=== PATIENT | male | born 1965 | race African-American/Black ===

== ENCOUNTER 2020-11-05 21:54 | Inpatient (IN) | payer OTHER ==
[2020-11-05 23:33] VITALS: BMI 32.6
[2020-11-06] MEDS ORDERED: METHOCARBAMOL 500 MG TABLET PO PRN (02:06)
[2020-11-06] MEDS ORDERED: BISMUTH SUBSALICYLATE 524 MG/30 ML PO PRN ×2 (02:06→02:10)
[2020-11-06] MEDS ORDERED: NICOTINE 10 MG CARTRIDGE (INHALER) IH PRN (02:06)
[2020-11-06] MEDS ORDERED: ONDANSETRON *ODT* 4 MG TABLET SL PRN (02:06)
[2020-11-06] MEDS ORDERED: MAGNESIUM HYDROX 2400MG/30ML ORAL SUSPENSION 30 ML CUP PO PRN (02:06)
[2020-11-06] MEDS ORDERED: MAG HYDROX/AL HYDROX/SIMETH 30 ML UNIT-DOSE CUP PO PRN (02:06)
[2020-11-06] MEDS ORDERED: IBUPROFEN 400 MG TABLET (FP) PO PRN (02:06)
[2020-11-06] MEDS ORDERED: ACETAMINOPHEN 325 MG TABLET (FP) PO PRN ×3 (02:06→02:10)
[2020-11-06] MEDS ORDERED: MENTHOL/PHENOL 1 EACH UD MM PRN (02:06)
[2020-11-06] MEDS ORDERED: MAGNESIUM CITRATE 300 ML BOTTLE PO PRN (02:06)
[2020-11-06] MEDS ORDERED: cloNIDine HCL 0.1 MG TABLET PO PRN (02:16)
[2020-11-06] MEDS ORDERED: methaDONE HCL 10 MG TABLET (FOR DETOX USE ONLY) PO ONE (02:16)
[2020-11-06] MEDS ORDERED: diazePAM 5 MG TABLET PO PRN (02:16)
[2020-11-06] MEDS ORDERED: methaDONE HCL 10 MG TABLET (FOR DETOX USE ONLY) ONE (04:13)
[2020-11-06] MEDS ORDERED: diazePAM 5 MG TABLET ONE ×2 (05:31→12:11)
[2020-11-06] MEDS: diazePAM 5 MG TABLET PO SCH ×4 (05:39→22:42)
[2020-11-06] MEDS: hydrOXYzine PAMOATE 25 MG CAPSULE (FP) PO SCH ×4 (06:18→18:01)
[2020-11-06] MEDS ORDERED: metFORMIN HCL 500 MG TABLET (FP) PO ONE (09:06)
[2020-11-06] MEDS ORDERED: hydrOXYzine PAMOATE 25 MG CAPSULE (FP) PO ONE (12:10)
[2020-11-06] MEDS: PRENATAL VITAMINS W/ FOLIC ACID TABLET (FP) PO SCH (12:13)
[2020-11-06] MEDS: metFORMIN HCL 500 MG TABLET (FP) PO SCH (18:01)
[2020-11-06] MEDS ORDERED: hydrOXYzine PAMOATE 25 MG CAPSULE (FP) PO PRN (18:48)
[2020-11-06] MEDS: THIAMINE HCL 100 MG TABLET (FP) PO SCH ×2 (22:41)
[2020-11-06] MEDS: MELATONIN 5 MG TABLETS PO SCH (22:46)
[2020-11-07] MEDS: metFORMIN HCL 500 MG TABLET (FP) PO SCH ×2 (07:09→17:49)
[2020-11-07] MEDS: diazePAM 5 MG TABLET PO SCH ×3 (07:09→22:50)
[2020-11-07] MEDS ORDERED: methaDONE HCL 10 MG TABLET (FOR DETOX USE ONLY) ONE (09:35)
[2020-11-07] MEDS: PRENATAL VITAMINS W/ FOLIC ACID TABLET (FP) PO SCH (11:08)
[2020-11-07] MEDS: THIAMINE HCL 100 MG TABLET (FP) PO SCH ×2 (22:50→22:56)
[2020-11-07] MEDS: MELATONIN 5 MG TABLETS PO SCH (22:51)
[2020-11-08] MEDS: diazePAM 5 MG TABLET PO SCH ×2 (06:59→19:10)
[2020-11-08] MEDS: metFORMIN HCL 500 MG TABLET (FP) PO SCH ×2 (07:01→19:09)
[2020-11-08] MEDS ORDERED: methaDONE HCL 10 MG TABLET (FOR DETOX USE ONLY) PO ONE (10:00)
[2020-11-08] MEDS: PRENATAL VITAMINS W/ FOLIC ACID TABLET (FP) PO SCH (10:33)
[2020-11-08] MEDS: THIAMINE HCL 100 MG TABLET (FP) PO SCH ×2 (23:48→23:49)
[2020-11-08] MEDS: MELATONIN 5 MG TABLETS PO SCH ×2 (23:48→23:53)
[2020-11-09] MEDS ORDERED: diazePAM 5 MG TABLET PO ONE (06:00)
[2020-11-09] MEDS: metFORMIN HCL 500 MG TABLET (FP) PO SCH ×2 (06:30→18:29)
[2020-11-09] MEDS ORDERED: methaDONE HCL 10 MG TABLET (FOR DETOX USE ONLY) ONE (09:25)
[2020-11-09] MEDS: PRENATAL VITAMINS W/ FOLIC ACID TABLET (FP) PO SCH (11:49)
[2020-11-09 13:13] LABS: HEMATOCRIT 36.5 % (35.4-49); HEMOGLOBIN 12.4 GM/dL (11.7-16.9); MEAN CELL VOLUME 91.2 fl (80-96); MEAN PLT VOLUME 8.2 fl (7.5-11.1); PLATELET COUNT 289 10^3/uL (134-434); RDW 14.2 % (11.9-15.9); WHITE BLOOD COUNT 3.8 K/mm3 (4.0-10.0)
[2020-11-09 13:17] LABS: ALBUMIN 3.6 g/dl (3.4-5.0); CALCIUM 9.2 mg/dL (8.5-10.1)
[2020-11-09 13:19] LABS: BLOOD UREA NITROGEN 11.6 mg/dL (7-18)
[2020-11-09 13:21] LABS: BILIRUBIN,TOTAL 0.4 mg/dL (0.2-1); TOT PROT 7.1 g/dl (6.4-8.2)
[2020-11-09 13:22] LABS: CREATININE 0.8 mg/dL (0.55-1.3)
[2020-11-09] MEDS: THIAMINE HCL 100 MG TABLET (FP) PO SCH ×2 (22:28)
[2020-11-09] MEDS: MELATONIN 5 MG TABLETS PO SCH (22:28)
[2020-11-10] MEDS: metFORMIN HCL 500 MG TABLET (FP) PO SCH ×2 (06:44→18:53)
[2020-11-10] MEDS ORDERED: methaDONE HCL 10 MG TABLET (FOR DETOX USE ONLY) PO ONE (10:00)
[2020-11-10] MEDS: PRENATAL VITAMINS W/ FOLIC ACID TABLET (FP) PO SCH (10:09)
[2020-11-10] MEDS: MELATONIN 5 MG TABLETS PO SCH (22:02)
[2020-11-10] MEDS: THIAMINE HCL 100 MG TABLET (FP) PO SCH ×2 (22:02)
[2020-11-11] MEDS: metFORMIN HCL 500 MG TABLET (FP) PO SCH (06:53)
[2020-11-11 07:13] VITALS: BP 135/74; PULSE 75; TEMP 98.6
== END 2020-11-11 10:10 | disposition home or self-care (01) | DRG 773 ==
LOC: YASAS 21:54 → Y6N 11-06 14:28
PROVIDERS: ADMIT Allergy & Immunology; ATTEND Allergy & Immunology
PROC: HZ2ZZZZ Detoxification Services for Substance Abuse Treatment (ICD-10-PCS; principal; 2020-11-06)
DX: F11.23 Opioid dependence with withdrawal (principal); F10.230 Alcohol dependence with withdrawal, uncomplicated; F14.20 Cocaine dependence, uncomplicated; F17.210 Nicotine dependence, cigarettes, uncomplicated; I10 Essential (primary) hypertension; E11.9 Type 2 diabetes mellitus without complications; Z79.84 Long term (current) use of oral hypoglycemic drugs; A53.9 Syphilis, unspecified
CPT/HCPCS: 36415; 80053; 82962; 85027; 86593; 86780; 93005; 93010; C9803; U0003; U0005

== ENCOUNTER 2021-06-03 14:31 | Inpatient (IN) | payer OTHER ==
[2021-06-03] MEDS ORDERED: BENZOCAINE/MENTHOL (CHLORASEPTIC ) LOZENGE MM PRN (16:27)
[2021-06-03] MEDS ORDERED: NICOTINE 10 MG CARTRIDGE (INHALER) IH PRN (16:27)
[2021-06-03] MEDS ORDERED: MAG HYDROX/AL HYDROX/SIMETH 30 ML UNIT-DOSE CUP PO PRN (16:27)
[2021-06-03] MEDS ORDERED: LOPERAMIDE HCL 2 MG CAPSULE PO PRN (16:27)
[2021-06-03] MEDS ORDERED: IBUPROFEN 400 MG TABLET (FP) PO PRN (16:27)
[2021-06-03] MEDS ORDERED: DICYCLOMINE HCL 10 MG CAPSULE PO PRN (16:27)
[2021-06-03] MEDS ORDERED: ONDANSETRON *ODT* 4 MG TABLET SL PRN (16:27)
[2021-06-03] MEDS ORDERED: ACETAMINOPHEN 325 MG TABLET (FP) PO PRN ×2 (16:27)
[2021-06-03] MEDS ORDERED: MAGNESIUM HYDROX 2400MG/30ML ORAL SUSPENSION 30 ML CUP PO PRN (16:27)
[2021-06-03] MEDS ORDERED: MAGNESIUM CITRATE 300 ML BOTTLE PO PRN (16:27)
[2021-06-03] MEDS ORDERED: NALOXONE HCL 0.4 MG/ML VIAL IM PRN (16:27)
[2021-06-03 17:24] VITALS: BMI 32.1
[2021-06-03] MEDS ORDERED: INSULIN SLIDING SCALE (NOVOLOG) 1 VIAL SQ SCH (18:00)
[2021-06-03] MEDS: hydrOXYzine PAMOATE 25 MG CAPSULE (FP) PO SCH ×2 (19:21→23:13)
[2021-06-03] MEDS: THIAMINE HCL 100 MG TABLET (FP) PO SCH (23:13)
[2021-06-03] MEDS: MELATONIN 5 MG TABLETS PO SCH (23:13)
[2021-06-04] MEDS: hydrOXYzine PAMOATE 25 MG CAPSULE (FP) PO PRN ×2 (06:31→10:39)
[2021-06-04] MEDS: metFORMIN HCL 500 MG TABLET (FP) PO SCH ×2 (06:31→20:14)
[2021-06-04] MEDS: INSULIN SLIDING SCALE (NOVOLOG) 1 VIAL SQ SCH ×2 (06:34→20:14)
[2021-06-04] MEDS: PRENATAL VITAMINS W/ FOLIC ACID TABLET (FP) PO SCH ×2 (10:35→10:39)
[2021-06-04] MEDS: METHOCARBAMOL 500 MG TABLET PO PRN (10:39)
[2021-06-04 13:18] LABS: CALCIUM 8.6 mg/dL (8.5-10.1)
[2021-06-04 13:19] LABS: ALBUMIN 3.2 g/dl (3.4-5.0); BLOOD UREA NITROGEN 17.7 mg/dL (7-18)
[2021-06-04 13:22] LABS: CREATININE 0.8 mg/dL (0.55-1.3)
[2021-06-04 13:24] LABS: BILIRUBIN,TOTAL 0.2 mg/dL (0.2-1); TOT PROT 6.1 g/dl (6.4-8.2)
[2021-06-04 13:31] LABS: HEMATOCRIT 35.5 % (35.4-49); HEMOGLOBIN 11.6 GM/dL (11.7-16.9); MCH 31.4 pg (25.7-33.7); MCHC 32.7 g/dl (32.0-35.9); MEAN PLT VOLUME 8.1 fl (7.5-11.1); PLATELET COUNT 245 10^3/uL (134-434); RDW 13.8 % (11.9-15.9); WHITE BLOOD COUNT 4.5 K/mm3 (4.0-10.0)
[2021-06-04] MEDS ORDERED: LORazepam 1 MG TABLET PO PRN (15:08)
[2021-06-04] MEDS ORDERED: LORazepam 1 MG TABLET PO ONE (15:10)
[2021-06-04] MEDS ORDERED: methaDONE HCL 10 MG TABLET (FOR DETOX USE ONLY) ONE (15:44)
[2021-06-04] MEDS: LORazepam 1 MG TABLET PO SCH ×2 (20:15→22:41)
[2021-06-04] MEDS: THIAMINE HCL 100 MG TABLET (FP) PO SCH (22:41)
[2021-06-04] MEDS: MELATONIN 5 MG TABLETS PO SCH (22:41)
[2021-06-05] MEDS: LORazepam 0.5 MG TABLET PO SCH ×4 (05:30→23:01)
[2021-06-05] MEDS: METHOCARBAMOL 500 MG TABLET PO PRN (05:32)
[2021-06-05] MEDS: INSULIN SLIDING SCALE (NOVOLOG) 1 VIAL SQ SCH ×2 (07:21→17:07)
[2021-06-05] MEDS: metFORMIN HCL 500 MG TABLET (FP) PO SCH ×2 (07:21→19:29)
[2021-06-05] MEDS ORDERED: methaDONE HCL 10 MG TABLET (FOR DETOX USE ONLY) PO ONE (10:00)
[2021-06-05] MEDS: PRENATAL VITAMINS W/ FOLIC ACID TABLET (FP) PO SCH (10:24)
[2021-06-05 16:07] LABS: SARS-CoV-2 NAA Not Detected (Not Detected)
[2021-06-05] MEDS: THIAMINE HCL 100 MG TABLET (FP) PO SCH (23:01)
[2021-06-05] MEDS: MELATONIN 5 MG TABLETS PO SCH (23:01)
[2021-06-06] MEDS ORDERED: LORazepam 0.5 MG TABLET PO PRN
[2021-06-06] MEDS ORDERED: LORazepam 0.5 MG TABLET PO ONE (05:00)
[2021-06-06] MEDS: metFORMIN HCL 500 MG TABLET (FP) PO SCH ×2 (06:13→18:21)
[2021-06-06] MEDS: INSULIN SLIDING SCALE (NOVOLOG) 1 VIAL SQ SCH ×2 (07:16→17:04)
[2021-06-06] MEDS ORDERED: methaDONE HCL 10 MG TABLET (FOR DETOX USE ONLY) ONE (09:41)
[2021-06-06] MEDS: METHOCARBAMOL 500 MG TABLET PO PRN (12:56)
[2021-06-06] MEDS: PRENATAL VITAMINS W/ FOLIC ACID TABLET (FP) PO SCH (12:58)
[2021-06-06] MEDS: BISMUTH SUBSALICYLATE 524 MG/30 ML PO PRN ×2 (12:59→22:28)
[2021-06-06] MEDS: MELATONIN 5 MG TABLETS PO SCH (22:27)
[2021-06-06] MEDS: THIAMINE HCL 100 MG TABLET (FP) PO SCH (22:27)
[2021-06-07] MEDS ORDERED: LORazepam 0.5 MG TABLET PO PRN
[2021-06-07] MEDS ORDERED: LORazepam 0.5 MG TABLET PO ONE (06:00)
[2021-06-07] MEDS: metFORMIN HCL 500 MG TABLET (FP) PO SCH (07:11)
[2021-06-07] MEDS: INSULIN SLIDING SCALE (NOVOLOG) 1 VIAL SQ SCH (07:12)
[2021-06-07] MEDS ORDERED: TRIMETHOBENZAMIDE HCL 200MG/2ML INJ IM PRN (09:03)
[2021-06-07 09:05] VITALS: BP 164/83; PULSE 84; TEMP 97.6
[2021-06-07] MEDS ORDERED: methaDONE HCL 10 MG TABLET (FOR DETOX USE ONLY) PO ONE (10:00)
== END 2021-06-07 10:13 | disposition home or self-care (01) | DRG 773 ==
LOC: YASAS 14:31 → UNDOADMIN 16:52 → Y3N 16:52
PROVIDERS: ADMIT Allergy & Immunology; ATTEND Allergy & Immunology
PROC: HZ2ZZZZ Detoxification Services for Substance Abuse Treatment (ICD-10-PCS; principal; 2021-06-03)
DX: F11.23 Opioid dependence with withdrawal (principal); F10.230 Alcohol dependence with withdrawal, uncomplicated; F17.210 Nicotine dependence, cigarettes, uncomplicated; I10 Essential (primary) hypertension; E11.65 Type 2 diabetes mellitus with hyperglycemia; Z79.84 Long term (current) use of oral hypoglycemic drugs; Z86.19 Personal history of other infectious and parasitic diseases
CPT/HCPCS: 36415; 80053; 82962; 85027; 86593; 86780; 93005; 93010; C9803-CS; Q0162; U0003; U0005

== ENCOUNTER 2021-10-25 17:04 | Observation (INO) | payer OTHER ==
[2021-10-25 17:37] VITALS: BMI 33.5
[2021-10-25] MEDS ORDERED: ASPIRIN 81 MG CHEWABLE TABLETS PO ONE (17:59)
[2021-10-25] MEDS ORDERED: ASPIRIN 81 MG CHEWABLE TABLETS ONE (18:31)
[2021-10-25 18:36] LABS: BASO % 1.1 % (0-2.0); EOS % 1.4 % (0-4.5); HEMATOCRIT 34.6 % (35.4-49); HEMOGLOBIN 11.4 GM/dL (11.7-16.9); LYMPH % 33.2 % (8-40); MCH 31.8 pg (25.7-33.7); MEAN CELL VOLUME 96.6 fl (80-96); MEAN PLT VOLUME 7.3 fl (7.5-11.1); MONO % 10.8 % (3.8-10.2); NEUT % 53.5 % (42.8-82.8); PLATELET COUNT 256 10^3/uL (134-434); RBC 3.58 M/mm3 (4.00-5.60); RDW 13.8 % (11.9-15.9); WHITE BLOOD COUNT 5.2 K/mm3 (4.0-10.0)
[2021-10-25 18:57] LABS: BLOOD UREA NITROGEN 18.5 mg/dL (7-18); CALCIUM 9.3 mg/dL (8.5-10.1)
[2021-10-25 18:59] LABS: ALBUMIN 4.2 g/dl (3.4-5.0)
[2021-10-25 19:00] LABS: CREATININE 0.9 mg/dL (0.55-1.3)
[2021-10-25 19:02] LABS: BILIRUBIN,TOTAL 0.2 mg/dL (0.2-1); TOT PROT 7.5 g/dl (6.4-8.2)
[2021-10-25 20:38] LABS: METHADONE, UR NEGATIVE (NEGATIVE); PHENCYCLIDINE,URINE NEGATIVE (NEGATIVE); URINE BENZODIAZEPINES NEGATIVE (NEGATIVE)
[2021-10-25 20:39] LABS: COCAINE, UR POSITIVE (NEGATIVE); OPIATES, URI POSITIVE (NEGATIVE); URINE AMPHETAMINES NEGATIVE (NEGATIVE); URINE BARBITURATES NEGATIVE (NEGATIVE)
[2021-10-25] MEDS ORDERED: LORazepam 1 MG TABLET PO PRN (23:14)
[2021-10-25] MEDS: LORazepam 2 MG TABLET PO SCH (23:41)
[2021-10-26] MEDS ORDERED: LORazepam 1 MG TABLET ONE ×4 (05:33→23:19)
[2021-10-26] MEDS: LORazepam 1 MG TABLET PO SCH ×6 (05:35→23:18)
[2021-10-26] MEDS: LORazepam 2 MG TABLET PO SCH ×2 (05:39→22:44)
[2021-10-26 08:37] LABS: BASO % 0.8 % (0-2.0); EOS % 1.5 % (0-4.5); HEMOGLOBIN 11.8 GM/dL (11.7-16.9); LYMPH % 33.2 % (8-40); MCH 32.2 pg (25.7-33.7); MCHC 33.7 g/dl (32.0-35.9); MEAN CELL VOLUME 95.5 fl (80-96); MEAN PLT VOLUME 7.1 fl (7.5-11.1); MONO % 12.7 % (3.8-10.2); NEUT % 51.8 % (42.8-82.8); PLATELET COUNT 252 10^3/uL (134-434); RBC 3.67 M/mm3 (4.00-5.60); RDW 13.5 % (11.9-15.9); WHITE BLOOD COUNT 4.1 K/mm3 (4.0-10.0)
[2021-10-26] MEDS: INSULIN SLIDING SCALE (NOVOLOG) 1 VIAL SQ SCH ×4 (08:47→23:18)
[2021-10-26 09:05] LABS: MAGNESIUM 1.9 mg/dL (1.8-2.4)
[2021-10-26 09:09] LABS: PHOSPHOROUS 3.2 mg/dL (2.5-4.9)
[2021-10-26] MEDS ORDERED: NICOTINE 7 MG/24 HOURS TOPICAL PATCH TD SCH (10:00)
[2021-10-26] MEDS ORDERED: NICOTINE 7 MG/24 HOURS TOPICAL PATCH TD ONE (10:31)
[2021-10-26] MEDS ORDERED: FOLIC ACID 1 MG TABLET (FP) ONE (10:31)
[2021-10-26] MEDS ORDERED: ENOXAPARIN NA (PORCINE) 40 MG/0.4 ML DISP.SYRIN SQ ONE (10:31)
[2021-10-26] MEDS: FOLIC ACID 1 MG TABLET (FP) PO SCH (10:36)
[2021-10-26] MEDS: ENOXAPARIN NA (PORCINE) 40 MG/0.4 ML DISP.SYRIN SQ SCH (10:36)
[2021-10-26] MEDS ORDERED: THIAMINE HCL 100 MG TABLET (FP) PO SCH (22:00)
[2021-10-26] MEDS ORDERED: THIAMINE HCL 100 MG TABLET (FP) ONE (23:19)
[2021-10-27] MEDS ORDERED: LORazepam 0.5 MG TABLET PO PRN
[2021-10-27 02:32] VITALS: TEMP 97.4
[2021-10-27] MEDS ORDERED: LORazepam 0.5 MG TABLET ONE ×2 (05:40→10:36)
[2021-10-27] MEDS: LORazepam 0.5 MG TABLET PO SCH ×2 (05:50→10:42)
[2021-10-27] MEDS: INSULIN SLIDING SCALE (NOVOLOG) 1 VIAL SQ SCH (06:01)
[2021-10-27] MEDS ORDERED: FOLIC ACID 1 MG TABLET (FP) ONE (10:37)
[2021-10-27] MEDS ORDERED: ENOXAPARIN NA (PORCINE) 40 MG/0.4 ML DISP.SYRIN SQ ONE (10:37)
[2021-10-27] MEDS: ENOXAPARIN NA (PORCINE) 40 MG/0.4 ML DISP.SYRIN SQ SCH (10:42)
[2021-10-27] MEDS: FOLIC ACID 1 MG TABLET (FP) PO SCH (10:42)
[2021-10-27 10:59] LABS: BASO % 0.9 % (0-2.0); EOS % 0.6 % (0-4.5); HEMATOCRIT 39.6 % (35.4-49); LYMPH % 25.9 % (8-40); MCH 31.3 pg (25.7-33.7); MCHC 32.8 g/dl (32.0-35.9); MEAN CELL VOLUME 95.4 fl (80-96); MEAN PLT VOLUME 7.9 fl (7.5-11.1); MONO % 9.3 % (3.8-10.2); NEUT % 63.3 % (42.8-82.8); PLATELET COUNT 296 10^3/uL (134-434); RBC 4.15 M/mm3 (4.00-5.60); RDW 13.4 % (11.9-15.9); WHITE BLOOD COUNT 4.2 K/mm3 (4.0-10.0)
[2021-10-27 11:20] LABS: BLOOD UREA NITROGEN 16.9 mg/dL (7-18); CALCIUM 9.5 mg/dL (8.5-10.1)
[2021-10-27 11:24] LABS: CREATININE 0.8 mg/dL (0.55-1.3)
[2021-10-27 11:25] LABS: BILIRUBIN,TOTAL 0.4 mg/dL (0.2-1); TOT PROT 7.1 g/dl (6.4-8.2)
[2021-10-27 13:24] VITALS: BP 124/54; PULSE 87; RESP 18
[2021-10-28] MEDS ORDERED: LORazepam 0.5 MG TABLET PO ONE (05:00)
== END 2021-10-27 13:11 ==
LOC: JER 17:04 → UNDOADMOB 19:18 → JERBED 19:18 → INTOOBSV 23:09 → OBSVTOIN 23:09 → JERBED 10-26 16:20
PROVIDERS: ADMIT Internal Medicine; ATTEND Nurse Practitioner Family
DX: F19.10 Other psychoactive substance abuse, uncomplicated (principal); E11.9 Type 2 diabetes mellitus without complications; I10 Essential (primary) hypertension; A53.9 Syphilis, unspecified; K21.9 Gastro-esophageal reflux disease without esophagitis; Z29.8 Encounter for other specified prophylactic measures; F17.210 Nicotine dependence, cigarettes, uncomplicated; E66.8 Other obesity; Z68.33 Body mass index [BMI] 33.0-33.9, adult
CPT/HCPCS: 36415; 71045-TC-FY; 80053; 80061; 80307; 82962; 83735; 84100; 84443; 84484; 85025; 93005; 93010; 93306-TC; 99285-25; G0378

== ENCOUNTER 2021-10-27 15:10 | Inpatient (IN) | payer OTHER ==
[2021-10-27 16:40] VITALS: RESP 18; BMI 34.0
[2021-10-27] MEDS ORDERED: METHOCARBAMOL 500 MG TABLET PO PRN (17:04)
[2021-10-27] MEDS ORDERED: chlordiazePOXIDE HCL 25 MG CAPSULE PO PRN (17:04)
[2021-10-27] MEDS ORDERED: IBUPROFEN 400 MG TABLET (FP) PO PRN (17:04)
[2021-10-27] MEDS ORDERED: MAGNESIUM HYDROX 2400MG/30ML ORAL SUSPENSION 30 ML CUP PO PRN (17:04)
[2021-10-27] MEDS ORDERED: cloNIDine HCL 0.1 MG TABLET PO PRN (17:04)
[2021-10-27] MEDS ORDERED: NICOTINE 10 MG CARTRIDGE (INHALER) IH PRN (17:04)
[2021-10-27] MEDS ORDERED: MAG HYDROX/AL HYDROX/SIMETH 30 ML UNIT-DOSE CUP PO PRN (17:04)
[2021-10-27] MEDS ORDERED: MAGNESIUM CITRATE 300 ML BOTTLE PO PRN (17:04)
[2021-10-27] MEDS ORDERED: methaDONE HCL 10 MG TABLET (FOR DETOX USE ONLY) PO ONE (17:04)
[2021-10-27] MEDS ORDERED: BISMUTH SUBSALICYLATE 524 MG/30 ML PO PRN (17:04)
[2021-10-27] MEDS ORDERED: DICYCLOMINE HCL 10 MG CAPSULE PO PRN (17:04)
[2021-10-27] MEDS ORDERED: ACETAMINOPHEN 325 MG TABLET (FP) PO PRN ×2 (17:04)
[2021-10-27] MEDS ORDERED: LOPERAMIDE HCL 2 MG CAPSULE PO PRN (17:04)
[2021-10-27] MEDS ORDERED: BENZOCAINE/MENTHOL (CHLORASEPTIC ) LOZENGE MM PRN (17:04)
[2021-10-27] MEDS ORDERED: IBUPROFEN 600 MG TABLET (FP) PO PRN (17:04)
[2021-10-27] MEDS: chlordiazePOXIDE HCL 25 MG CAPSULE PO SCH ×2 (18:59→22:57)
[2021-10-27] MEDS: hydrOXYzine PAMOATE 25 MG CAPSULE (FP) PO SCH ×2 (19:01→22:57)
[2021-10-27] MEDS ORDERED: THIAMINE HCL 100 MG TABLET (FP) PO SCH (22:00)
[2021-10-27] MEDS: FOLIC ACID 1 MG TABLET (FP) PO SCH (22:53)
[2021-10-27] MEDS: THIAMINE HCL 100 MG TABLET (FP) PO SCH (22:56)
[2021-10-27] MEDS: MELATONIN 5 MG TABLETS PO SCH (22:56)
[2021-10-28] MEDS: chlordiazePOXIDE HCL 25 MG CAPSULE PO SCH ×4 (06:52→22:53)
[2021-10-28] MEDS: hydrOXYzine PAMOATE 25 MG CAPSULE (FP) PO SCH ×5 (06:52→22:53)
[2021-10-28] MEDS: metFORMIN HCL 500 MG TABLET (FP) PO SCH ×2 (07:48→17:38)
[2021-10-28] MEDS: ONDANSETRON *ODT* 4 MG TABLET SL PRN (10:26)
[2021-10-28] MEDS: FOLIC ACID 1 MG TABLET (FP) PO SCH (10:27)
[2021-10-28] MEDS: PRENATAL VITAMINS W/ FOLIC ACID TABLET (FP) PO SCH (10:27)
[2021-10-28] MEDS: INSULIN (NOVOLOG) ASPART 100 UNITS/ML 10ML VIAL SQ SCH ×3 (11:58→22:53)
[2021-10-28] MEDS: INSULIN SLIDING SCALE (NOVOLOG) 1 VIAL SQ SCH (15:17)
[2021-10-28] MEDS ORDERED: INSULIN SLIDING SCALE (NOVOLOG) 1 VIAL SQ ONE (21:32)
[2021-10-28] MEDS: THIAMINE HCL 100 MG TABLET (FP) PO SCH (22:53)
[2021-10-28] MEDS: MELATONIN 5 MG TABLETS PO SCH (22:54)
[2021-10-29] MEDS: chlordiazePOXIDE HCL 25 MG CAPSULE PO SCH ×4 (06:09→22:06)
[2021-10-29] MEDS: metFORMIN HCL 500 MG TABLET (FP) PO SCH ×2 (06:09→18:17)
[2021-10-29] MEDS: hydrOXYzine PAMOATE 25 MG CAPSULE (FP) PO SCH ×5 (06:10→22:05)
[2021-10-29] MEDS: INSULIN (NOVOLOG) ASPART 100 UNITS/ML 10ML VIAL SQ SCH ×4 (08:28→22:07)
[2021-10-29] MEDS ORDERED: methaDONE HCL 10 MG TABLET (FOR DETOX USE ONLY) PO ONE (10:00)
[2021-10-29] MEDS: FOLIC ACID 1 MG TABLET (FP) PO SCH (10:45)
[2021-10-29] MEDS: PRENATAL VITAMINS W/ FOLIC ACID TABLET (FP) PO SCH (10:45)
[2021-10-29] MEDS: ONDANSETRON *ODT* 4 MG TABLET SL PRN (11:02)
[2021-10-29] MEDS: THIAMINE HCL 100 MG TABLET (FP) PO SCH (22:05)
[2021-10-29] MEDS: MELATONIN 5 MG TABLETS PO SCH (22:05)
[2021-10-30] MEDS ORDERED: chlordiazePOXIDE HCL 10 MG CAPSULE PO PRN
[2021-10-30] MEDS: ONDANSETRON *ODT* 4 MG TABLET SL PRN (04:42)
[2021-10-30] MEDS ORDERED: chlordiazePOXIDE HCL 10 MG CAPSULE PO SCH (05:00)
[2021-10-30 06:45] VITALS: BP 128/77; TEMP 97.5
[2021-10-30] MEDS ORDERED: TRIMETHOBENZAMIDE HCL 200MG/2ML INJ IM ONE (06:48)
[2021-10-30] MEDS: hydrOXYzine PAMOATE 25 MG CAPSULE (FP) PO SCH (07:03)
[2021-10-30] MEDS: metFORMIN HCL 500 MG TABLET (FP) PO SCH (07:30)
[2021-10-30] MEDS: INSULIN (NOVOLOG) ASPART 100 UNITS/ML 10ML VIAL SQ SCH (07:31)
[2021-10-30 09:30] VITALS: PULSE 96
[2021-10-31] MEDS ORDERED: chlordiazePOXIDE HCL 10 MG CAPSULE PO SCH (05:00)
[2021-10-31] MEDS ORDERED: methaDONE HCL 10 MG TABLET (FOR DETOX USE ONLY) PO ONE (10:00)
[2021-11-01] MEDS ORDERED: chlordiazePOXIDE HCL 10 MG CAPSULE PO ONE (05:00)
== END 2021-10-30 10:46 | disposition home or self-care (01) | DRG 773 ==
LOC: YASAS 15:10 → Y3N 17:48
PROVIDERS: ADMIT Allergy & Immunology; ATTEND Surgery
PROC: HZ2ZZZZ Detoxification Services for Substance Abuse Treatment (ICD-10-PCS; principal; 2021-10-27)
DX: F11.23 Opioid dependence with withdrawal (principal); F10.230 Alcohol dependence with withdrawal, uncomplicated; F14.20 Cocaine dependence, uncomplicated; F17.210 Nicotine dependence, cigarettes, uncomplicated; F19.24 Other psychoactive substance dependence with psychoactive substance-induced mood disorder; I10 Essential (primary) hypertension; E11.9 Type 2 diabetes mellitus without complications; K21.9 Gastro-esophageal reflux disease without esophagitis; E66.9 Obesity, unspecified; Z68.34 Body mass index [BMI] 34.0-34.9, adult; Z86.19 Personal history of other infectious and parasitic diseases; Z79.4 Long term (current) use of insulin; Z56.0 Unemployment, unspecified
CPT/HCPCS: 36415; 82962; 86593; 86780; C9803-CS; Q0162; U0003; U0005